=== PATIENT | male | born 1980 | race Caucasian/White ===

== ENCOUNTER 2018-06-13 22:29 | Emergency (ER) | payer MEDICAID ==
[~2018-06-13] VITALS: Ht 182.9 cm; Wt 113.6 kg
[2018-06-13 23:06] VITALS: Ht 182.9 cm; Wt 113.6 kg
[2018-06-13 23:43] LABS: COLOR YELLOW (YELLOW)
[2018-06-13 23:44] LABS: APPEARANCE CLEAR (CLEAR); BILIRUBIN NEGATIVE (NEGATIVE); GLUCOSE NEGATIVE (NEGATIVE); KETONE NEGATIVE (NEGATIVE); NITRITE NEGATIVE (NEGATIVE); PROTEIN NEGATIVE (NEGATIVE); SPECIFIC GRAVITY 1.015 (1.005-1.020); UROBILINOGEN NORMAL (NORMAL)
[2018-06-13 23:49] LABS: BASOPHILS 0.2 % (0-2); HEMATOCRIT 40.2 % (42.0-54.0); HEMOGLOBIN 13.8 g/dL (13.5-17.5); IMMATURE GRANULOCYTES 0.1 % (0-5); LYMPHOCYTES 28.6 % (15-50); MCH 29.7 pg (26.0-34.0); MCHC 34.3 g/dL (31.0-37.0); MCV 86.6 fL (80.0-100.0); MEAN PLATELET VOLUME 9.4 fL (7.4-10.4); MONOCYTES 11.6 % (2-11); NEUTROPHILS 57.5 % (40-80); PLATELET COUNT 205 10x3/uL (130-400); RBC 4.64 10x6/uL (4.20-6.10); RDW 12.6 % (11.5-14.5); WBC 10.3 10x3/uL (4.8-10.8)
[2018-06-13 23:57] LABS: UDS - AMPHET NEGATIVE QUAL (NEGATIVE); UDS - BARB NEGATIVE QUAL (NEGATIVE); UDS - BENZO NEGATIVE QUAL (NEGATIVE); UDS - COCAINE NEGATIVE QUAL (NEGATIVE); UDS - OPIATE NEGATIVE QUAL (NEGATIVE); UDS - PCP NEGATIVE QUAL (NEGATIVE); UDS - THC NEGATIVE QUAL (NEGATIVE)
[2018-06-14 00:04] LABS: LITHIUM 0.64 mmol/L (0.60-1.20); SALICYLATES 1.3 mg/dL (2.8-20.0)
[2018-06-14 00:06] LABS: ALBUMIN 3.6 g/dL (3.4-5.0); ANION GAP 14.5 mmol/L (8-16); BILIRUBIN - TOTAL 0.22 mg/dL (0.2-1.3); CALCIUM 8.9 mg/dL (8.5-10.1); CARBON DIOXIDE 27.8 mmol/L (21.0-32.0); CREATININE - SERUM 1.2 mg/dL (0.6-1.3); POTASSIUM - SERUM 4.3 mmol/L (3.5-5.1); PROTEIN - SERUM 7.3 g/dL (6.4-8.2); VALPROIC ACID (DEPAKOTE) 11.7 ug/mL (50.0-100.0)
[2018-06-14] MEDS ORDERED: ZANTAC300 MG PO (00:51)
[2018-06-14] MEDS ORDERED: CARAFATE1 G PO (00:51)
[2018-06-14] MEDS ORDERED: RISPERDAL1 MG PO (00:52)
[2018-06-14] MEDS ORDERED: OMEGA-3100 MG PO (00:52)
[2018-06-14] MEDS ORDERED: ROBAXIN500 MG PO (00:52)
[2018-06-14] MEDS ORDERED: LOPRESSOR25 MG (00:52)
[2018-06-14] MEDS ORDERED: LITHIUM CARBON150 MG PO (00:53)
[2018-06-14] MEDS ORDERED: ZOFRAN ODT4 MG/UDTAB PO (00:56)
[2018-06-14 01:20] VITALS: BP 115/70
== END 2018-06-14 01:23 | disposition home or self-care (01) ==
LOC: D.ER 22:29
PROVIDERS: Emergency Medicine
DX: G44.209 Tension-type headache, unspecified, not intractable (principal); F60.1 Schizoid personality disorder